=== PATIENT | male | born 1965 | race Caucasian/White ===

== ENCOUNTER 2017-03-09 10:15 | Emergency (ER) | payer MEDICAID ==
[2017-03-09 10:23] VITALS: BP 111/78; PULSE 84; RESP 18; TEMP 97.2; O2SAT 97
[2017-03-09] MEDS ORDERED: FLUORESCEIN SODIUM 1 MG STRIP OP ONE ×2 (10:28→10:29)
[2017-03-09] MEDS ORDERED: PROPARACAINE 0.5% 15 ML OPHT DROP ONE (10:28)
[2017-03-09] MEDS ORDERED: PROPARACAINE 0.5% 15 ML OPHT DROP RTEYE ONE (10:29)
--- NOTE | 2017-03-09 10:48 | EDPHY ---
H & P Time Seen by Provider: 03/09/17 10:25 HPI/ROS: CHIEF COMPLAINT: Left eye injury HISTORY OF PRESENT ILLNESS: 52-year-old male presents to the emergency department complaining of pain in his left eye. Patient states last night he walked into a branch and thinks that he has something in his eye. He has complained of irritation isolated only to the left eye since that time. He denies visual changes. Denies symptoms in the right eye. His last tetanus shot was 1 year ago. ROS: Denies drainage from the left eye, double vision, blurry vision, symptoms in the right eye. Past Medical/Surgical History: Substance abuse including recent methamphetamines, alcoholism, anxiety, depression, orthopedic surgery, tonsillectomy Social History: Single and lives in [place] Smoking Status: Current every day smoker Physical Exam: Visual Acuity: noted from Nurse's notes. Pupils:equal round and reactive to light EOMI Lids: swelling noted to the left upper eyelid. There is no redness or warmth or signs of infection. Patient did not tolerate everting the upper eyelid on the left side. No obvious retained foreign bodies underneath his left eyelid. Skin: no proptosis, no periorbital erythema or swelling, no vesicles Conjunctivae: Injection noted to the left eye without discharge. Cornea: After consent was obtained from the patient, proparacaine drops were instilled into the left eye with immediate relief. Fluorescein strip was used under slit-lamp examination the patient corneal abrasion noted to the central part cornea just above the pupil. No evidence of retained foreign body. Anterior chamber:normal, no hyphema or hypopyon Constitutional: Initial Vital Signs Temperature (C) 36.2 C 03/09/17 10:16 Heart Rate 84 03/09/17 10:16 Respiratory Rate 18 03/09/17 10:16 Blood Pressure 111/78 03/09/17 10:16 O2 Sat (%) 97 03/09/17 10:16 O2 Delivery Mode Room Air Allergies/Adverse Reactions: No Known Allergies Allergy (Verified 03/09/17 10:16) Home Medications: Medication Instructions Recorded Ofloxacin 0.3% [Ocuflox] 1 - 2 drops LEFTEYE QID 7 Days 03/09/17 MDM/Departure - MDM Medications Given: Discontinued Medications Fluorescein Sodium (Ajvne-G-Elcjb) 1 mg OP EDNOW ONE Stop: 03/09/17 10:30 Last Admin: 03/09/17 10:29 Dose: 1 mg Ofloxacin (Ocuflox 0.3% Opht Drops Prepack) 1 btl TAKEHOME EDNOW ONE Stop: 03/09/17 10:51 Last Admin: 03/09/17 11:43 Dose: 1 btl Proparacaine HCl (Alcaine 0.5%) 1 drops RTEYE ONCE ONE Stop: 03/09/17 10:30 Last Admin: 03/09/17 10:30 Dose: 1 drop ED Course/Re-evaluation: 52-year-old male presents with corneal abrasion. Patient tells me that he does not have even a dollar to fill a prescription. He will be treated with Ocuflox ophthalmic drops which has been called into [facility] here at the hospital and was delivered to the patient in the waiting room. The patient was given ophthalmology referral. He was instructed to follow up with the land planner in 2-3 days if he does not notice significant improvement or sooner if he feels worse in any way. He was comfortable with this plan. - Depart Disposition: Home, Routine, Self-Care Clinical Impression: Corneal abrasion, left Qualifiers: Encounter type: initial encounter Qualified Code(s): S05.02XA - Injury of conjunctiva and corneal abrasion without foreign body, left eye, initial encounter Condition: Good Instructions: Corneal Abrasion (ED) Additional Instructions: Ocuflox ophthalmic drops 2 drops 4 times a day for 1 week to the left eye to prevent infection. Return to the emergency department if you develop visual changes or if you feel worse in any way. Follow up with an land planner in 2 -3 days if you do not notice improvement. Prescriptions: Ofloxacin 0.3% [Ocuflox] 1 - 2 drops LEFTEYE QID 7 Days Referrals: Martin Del Castillo MD [Medical Doctor] - 2-3 days, if not improved ( [employer] on-call)
[2017-03-09] MEDS ORDERED: OFLOXACIN 0.3% SOLN PREPACK OPHT.BTL TAKEHOME ONE (10:50)
== END 2017-03-09 11:47 | disposition home or self-care (01) ==
DX: S05.02XA Injury of conjunctiva and corneal abrasion without foreign body, left eye, initial encounter (principal); F17.200 Nicotine dependence, unspecified, uncomplicated; X58.XXXA Exposure to other specified factors, initial encounter; Y99.8 Other external cause status; Y93.01 Activity, walking, marching and hiking

== ENCOUNTER 2018-08-25 12:25 | Emergency (ER) | payer MEDICAID ==
[2018-08-25 12:37] VITALS: BP 119/93
--- NOTE | 2018-08-25 13:29 | EDPHY ---
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 Atraumatic. Denies IV drug use. Denies fever chills. Denies chest pain. Denies flu-like symptoms. PRIMARY CARE PROVIDER: Dr. Kyle Jaramillo REVIEW OF SYSTEMS: 10 systems reviewed and negative with the exception of the elements mentioned in the history of present illness PAST MEDICAL & SURGICAL HISTORY: cutaneous MRSA SOCIAL HISTORY:Homeless. Denies IV drug use. Positive tobacco abuse PHYSICAL EXAM (Prior to examination, patient consented to physical exam, hands were washed and my usual and customary physical exam procedures followed) 1) GENERAL: Well-developed, well-nourished, alert and oriented. Appears to be in no acute distress. Laughing, making jokes, talkative, appears well, appears nontoxic 2) HEAD: Normocephalic, atraumatic 3) HEENT: Pupils equal, round, reactive to light bilaterally. Sclera anicteric. 4) NECK: Full range of motion, no meningeal signs. 5) LUNGS: Clear auscultation bilaterally, no wheezes, no rhonchi, no retractions. 6) HEART: Regular rate and rhythm, no murmur, no heave, no gallop. 7) ABDOMEN: No guarding, no rebound, no focal tenderness, negative McBurney's, negative Ryan's, negative Rovsing's, negative peritoneal sign, 8) MUSCULOSKELETAL: Right volar forearm to erythematous indurated nonfluctuant nondraining lesions with no lymphangitic streaking. Soft compartments with no crepitus. Left pretibial region 3 discrete erythematous, indurated, nonfluctuant, nondraining lesions with no lymphangitic streaking. No crepitus. Soft compartments. Moving all extremities, no focal areas of tenderness, no obvious trauma. No peripheral edema or discoloration. 9) BACK: No CVA tenderness, no midline vertebral tenderness, no fluctuance, no step-off, no obvious trauma, no visual or palpable abnormality. 10) SKIN: No rash, no petechiae. 11) Psychiatric: Patient is oriented X 3, there is no agitation. DIFFERENTIAL DIAGNOSIS: In no particular include but limited to abscess, carbunculosis, necrotizing fasciitis Smoking Status: Current every day smoker Constitutional: Initial Vital Signs Temperature (C) 36.6 C 08/25/18 12:30 Heart Rate 114 H 08/25/18 12:30 Respiratory Rate 16 08/25/18 12:30 Blood Pressure 119/93 H 08/25/18 12:30 O2 Sat (%) 97 08/25/18 12:30 O2 Delivery Mode Room Air Allergies/Adverse Reactions: No Known Allergies Allergy (Verified 03/09/17 10:16) Home Medications: Medication Instructions Recorded Cephalexin [Keflex] 500 mg PO TID 10 Days cap 08/25/18 Sulfamethox/Tmp 800/160 mg 1 tab PO BID@1000,2200 10 Days tab 08/25/18 [Bactrim Ds] MDM/Departure - MDM ED Course/Re-evaluation: 1:24 p.m.: Patient has a known cutaneous MRSA history and has 2 lesions on his right forearm and to on his left pretibial region which I think are consistent with more than likely cutaneous MRSA. These are nonfluctuant nondraining. I do not think that incision and drainage indicated. The lesions on his lower extremity are discrete distance from his joints I think septic arthritis is less than likely. Addition he has no pain with range of motion is full weight- bearing. He was initially noted to be tachycardic at 114 beats per minute at triage. Upon my evaluation heart rate in the low 90s. I do not think the patient is septic. He is afebrile. Think he can be treated on outpatient basis. Recommend avoiding incising and draining the areas himself. I recommended warm compresses. Recommend 2 day recheck. My usual and customary wound precautions instructions provided. I saw this patient independently based on established practice protocols. Care of patient under supervision of secondary supervising physician Dr Brock . - Depart Disposition: Home, Routine, Self-Care Clinical Impression: Carbuncle and furuncle Condition: Good Instructions: Furunculosis and Carbunculosis (ED) Additional Instructions: Return to the ER if you develop redness, swelling, discharge, warmth to the wound, red streaks going up your arm or leg, or any other symptoms that concern you. Place warm compresses on the area 3-4 times per day. Do not incised or stab the areas yourself. Prescriptions: Cephalexin [Keflex] 500 mg PO TID 10 Days cap Sulfamethox/Tmp 800/160 mg [Bactrim Ds] 1 tab PO BID@1000,2200 10 Days tab Referrals: Kyle Jaramillo MD [Primary Care Provider] - 1-2 days without fail
== END 2018-08-25 13:38 | disposition home or self-care (01) ==
LOC: EEVIPCON 12:25
DX: L02.91 Cutaneous abscess, unspecified (principal); L02.92 Furuncle, unspecified; B95.62 Methicillin resistant Staphylococcus aureus infection as the cause of diseases classified elsewhere; F17.200 Nicotine dependence, unspecified, uncomplicated

== ENCOUNTER 2019-05-26 10:46 | Emergency (ER) | payer MEDICAID | END 2019-05-26 12:31 | disposition home or self-care (01) ==